=== PATIENT | male | born 1985 | race Caucasian/White ===

== ENCOUNTER 2017-06-03 16:52 | Emergency (ER) | payer BC ==
[2017-06-03] MEDS ORDERED: Tetracaine 0.5% OPHTH SOLN/PF 4 ML BOT ONE (17:01)
[2017-06-03] MEDS ORDERED: Ketorolac Tromethamine 60 MG/2 ML VIAL ONE (17:19)
[2017-06-03] MEDS ORDERED: Gentamicin Ophth Ointment 0.3% 3.5 gm Tube ONE (17:19)
[2017-06-03] MEDS ORDERED: HYDROcodone/Acetaminophen 5/325 mg Tablet ONE (17:19)
== END 2017-06-03 17:42 | disposition home or self-care (01) ==
LOC: MADERS 16:52
DX: T15.01XA Foreign body in cornea, right eye, initial encounter (principal); F31.9 Bipolar disorder, unspecified; Z79.899 Other long term (current) drug therapy; Y92.009 Unspecified place in unspecified non-institutional (private) residence as the place of occurrence of the external cause
CPT/HCPCS: 96372; J1885

== ENCOUNTER 2025-05-04 13:09 | Outpatient (CLI) | payer OTHER ==
[2025-05-04 13:50] LABS: Hematocrit 47.1 % (42.0-52.0); Hemoglobin 14.9 g/dL (14.0-18.0); Mean Corpuscular Hemoglobin 28.4 pg (27.0-31.0); Mean Corpuscular Volume 89.4 fl (78.0-98.0); Platelet Count 270 10x3/uL (130-400); Red Blood Cell (RBC) Count 5.27 mill/uL (4.70-6.10); White Blood Cell (WBC) Count 5.3 10x3/uL (4.8-10.8)
[2025-05-04 22:38] LABS: Albumin (w/Testosterone Panel) 4.6 g/dL
[2025-05-04 23:08] LABS: Testosterone, Free 65.0 pg/mL (47-244)
== END 2025-05-04 13:10 | disposition home or self-care (01) ==
LOC: MADLAB 13:09
PROVIDERS: ATTEND Internal Medicine
DX: E29.1 Testicular hypofunction (principal)
CPT/HCPCS: 36415; 82670; 84270; 84403; 85027